=== PATIENT | female | born 1980 | race Two or more races ===

== ENCOUNTER 2019-03-25 09:16 | Outpatient (CLI) | payer OTHER | END 2019-03-25 11:10 | disposition home or self-care (01) | LOC: NST 09:16 | DX: Z34.83 Encounter for supervision of other normal pregnancy, third trimester (principal) ==

== ENCOUNTER 2019-04-07 05:37 | Inpatient (IN) | payer OTHER ==
[~2019-04-07] VITALS: Ht 160 cm; Wt 82.6 kg
[2019-04-07] MEDS ORDERED: PRENATAL + DHA1 EAC1 (07:14)
== END 2019-04-09 13:34 | disposition home or self-care (01) | DRG 807 ==
LOC: LDR 05:37 → OB/GYN 05:37
PROVIDERS: ADMIT Obstetrics & Gynecology
PROC: 10E0XZZ Delivery of Products of Conception, External Approach (ICD-10-PCS; principal; 2019-04-07)
PROC: 0W8NXZZ Division of Female Perineum, External Approach (ICD-10-PCS; 2019-04-07)
PROC: 4A1HXCZ Monitoring of Products of Conception, Cardiac Rate, External Approach (ICD-10-PCS; 2019-04-07)
DX: O80 Encounter for full-term uncomplicated delivery (principal); Z37.0 Single live birth; Z3A.37 37 weeks gestation of pregnancy; Z22.330 Carrier of Group B streptococcus